=== PATIENT | female | born 1995 | race Two or more races ===

== ENCOUNTER 2022-05-07 09:12 | Emergency (ER) | payer MEDICAID, SELFPAY ==
--- NOTE | ~2022-05-07 | CT_ITS ---
EXAMINATION: CT HEAD WITHOUT CONTRAST CLINICAL INFORMATION: New headache, rule out intracranial abnormality. COMPARISON: None TECHNIQUE: Contiguous axial imaging was performed from the skull base to vertex without intravenous administration of contrast. Coronal and sagittal reformatted images were obtained. This CT examination was performed using dose optimization techniques as appropriate, variously including the following: *Automated exposure control *Adjustment of mA and/or kV according to patient size (this includes techniques or standardized protocols for targeted exams where dose is matched to indication/reason for exam; i.e. extremities or head) *Use of iterative reconstruction technique DLP: 583 mGy-cm FINDINGS: The cortical sulci are normal. The lateral ventricles are symmetrical. The third and fourth ventricles are in their normal midline position. The basilar and prepontine cisterns are unremarkable. There is no acute intra or extracerebral abnormality. There is no mass effect or midline shift. Sections through the bony calvarium are unremarkable. The paranasal sinuses are clear. The bony orbits and orbital contents are unremarkable. CT/CT head/brain wo IV con IMPRESSION: No acute intracranial pathology.
[2022-05-07 09:14] VITALS: BP 138/63; PULSE 69; RESP 18; TEMP 36.6; O2SAT 98; BMI 27.4
--- NOTE | 2022-05-07 09:23 | ED_ITS ---
HPI - General Adult General Chief complaint: Headache Stated complaint: Nausea Time Seen by Provider: 05/07/22 09:23 Source: patient Mode of arrival: ambulatory Limitations: language barrier History of Present Illness HPI narrative: 27 yo Sammarinese speaking female presents to the ED with complaints of headache, nausea, sore throat and dizziness which worsens when she turns her head to the right. She states it woke her from her sleep on Sunday feeling dizzy. She endorses nausea and diarrhea and states that she feels like she has numbness and tingling in her fingers. She states dizziness has not subsided or worsened since Sunday, however; her headache began to worsen last night with sensitivity to light and she took Tylenol and Ibuprofen without relief, prompting her to come to the ED today. She states her headache is in her forehead and temples and does not radiate. She denies any trauma, recent illness, sick contacts, vision changes, vomiting, changes in diet, or changed in gait. Onset (ago): day(s) Location: head Radiation: non-radiation Severity: moderate Severity scale (1-10): 5 Quality: aching Pain Consistency: constant Relieving factors: none Exacerbating factors: movement Associated symptoms: headaches and nausea/vomiting Treatments prior to arrival: NSAID Related Data Allergies Allergy/AdvReac Type Severity Reaction Status Date / Time No Known Allergies Allergy Verified 05/07/22 09:14 Review of Systems Review of Systems: Yes all other systems are reviewed and are negative Constitutional: Constitutional: Reports no additional constitutional complaints, Denies chills, Denies fever(s), Reports headache(s), Denies night s weats and Denies poor appetite Eyes: Eyes: Reports no additional eye complaints, Denies change in vision and Reports photophobia ENT: Reports system reviewed and no additional complaints, except as documented, Reports Normal hearing present, Denies dysphagia, Reports vertigo, Reports dizziness, Reports headache(s), Denies sinus pain, Denies sinus pressure and Reports sore throat Cardiovascular: Cardiovascular: Reports no additional cardiovascular complaints, Denies chest pain, Denies Epigastric Pain and Denies dyspnea Respiratory: Respiratory: Reports no additional respiratory complaints and Denies dyspnea Gastrointestinal: Gastrointestinal: Reports no additional gastrointestinal complaints, Denies abdominal pain, Denies constipation, Denies dysphagia, Reports diarrhea, Reports nausea and Denies vomiting Genitourinary: Genitourinary: Reports no additional female genitourinary complaints, Denies abnormal menses and Denies hematuria Musculoskeletal: Musculoskeletal: Reports no additional musculoskeletal complaints Integumentary/Breasts: Skin/Breast: Reports system reviewed and no additional complaints, except as docu Neurologic: Reports system reviewed and no additional complaints, except as documented, Reports Normal hearing present, Reports vertigo, Reports dizziness and Reports headache(s) Psychiatric: Psychiatric: Reports no additional psychiatric complaints PMFSH Past Medical History Attestation statement: The following information was validated with the patient. Source: old records reviewed Social History Social History Advance Directives: No Advance Directives Information Provided: No Physical Exam ED Vital Signs: Vital Signs - 24 hr 05/07/22 09:14 05/07/22 12:11 Temperature 97.8 F 98.1 F Pulse Rate 69 67 Respiratory Rate 18 18 Blood Pressure 138/63 Pulse Oximetry 98 99 Oxygen Delivery Method Room Air Room Air BMI result Body Mass Index 27.4 Const General: cooperative, alert and awake Nutritional Appearance: well nourished Orientation/consciousness: patient oriented x3 Limitations: language barrier HENMT Head: Yes normal to inspection, Yes normocephalic and Yes atraumatic Ears: hearing grossly normal bilaterally, external ears normal, TM normal on the left and unable to visualize TM (Large volume of cerumen present) on the left General nose exam: Normal external nose present and Normal nares present Face and sinus: Yes normal facial exam and Yes face symmetric Mouth: Normal oral and palatal mucosa present and tongue normal Teeth and gingiva: dentition normal Eyes General: appearance normal, both eyes and all related structures Visual Espinosa: normal visual espinosa by confrontation Alignment and Position: alignment normal Periorbital: periorbital findings normal Eyelids: Yes eyelids normal Conjunctivae: conjunctivae normal Sclerae: sclerae normal Corneas: corneas normal Pupils: Equal, round and reactive pupils present EOM: EOMs intact bilaterally Direct Ophthalmoscopy: normal light reflex, no photophobia and photophobia Neck Neck: Yes normal visual inspection, Yes full ROM and Yes no meningeal signs Chest Chest palpation & inspection: normal inspection of the chest Resp Effort & Inspection: normal respiratory effort, able to speak in complete sentences, no cough and not labored Auscultation: clear to auscultation bilaterally Cardio Rate: regular rate Rhythm: regular rhythm GI Inspection: Yes normal to inspection Palpation (GI): Soft to palpation and nontender Auscultation: normal bowel sounds General: Yes no CVA tenderness Back/Spine/Pelvis Back: no CVA tenderness Cervical Spine: normal cervical lordosis Thoracic/Lumbar Spine: thoracic and lumbar spine normal to inspection Skin General skin exam: no rashes or lesions noted Neuro General: patient oriented x3 and no meningeal signs Cranial nerves: Yes Equal, round and reactive pupils present, Yes Bilaterally intact EOM present, Yes Normal hearing present, Yes Ability to bilaterally rotate head present and Yes Ability to bilaterally elevate shoulders present Cognition (Neuro): normal cognition Gait exam (Neuro): Normal gait present Motor exam (neuro): 5/5 motor strength present throughout Sensory Exam: Normal double simultaneous stimulation for sensation Extrem General: Yes normal to inspection, Yes full ROM and Yes capillary refill normal Psych Appearance: grossly normal Mental Status: mental status grossly normal Speech and movement: Normal speech and movement present Affect: normal affect Attitude: cooperative Thought process: Normal thought process present Thought content: Normal thought content present Insight: Good insight present (Psych) Judgement: Good judgement present (Psych) Medications Administered Discontinued Medications Generic Name Dose Route Start Last Admin Trade Name Freq PRN Reason Stop Dose Admin Acetaminophen 650 mg 05/07/22 09:43 05/07/22 10:16 Acetaminophen 325 Mg Tablet PO 05/07/22 09:44 650 mg ONCE ONE Administration Diphenhydramine HCl 50 mg 05/07/22 09:50 05/07/22 10:15 Diphenhydramine Hcl 25 Mg Capsule PO 05/07/22 09:51 50 mg ONCE ONE Administration Docusate Sodium 100 mg 05/07/22 11:31 05/07/22 11:38 Docusate Sodium 100 Mg/10 Ml Liquid PO 05/07/22 11:32 100 mg ONCE ONE Administration Metoclopramide HCl 5 mg 05/07/22 09:50 05/07/22 12:11 Metoclopramide Hcl 5 Mg Tablet PO 05/07/22 09:51 5 mg ONCE ONE Administration Procedures Ear Wax Removal Right Ear: Cerumenolytic Used: Colace Results: Re-examined: some cerumen remains TM Examination: TM(s) intact, normal appearance Ear Canal Exam: atraumatic Patient Tolerated Procedure: well Complications: no problems Technique: ear canal irrigated Additional Comments: Right ear irrigated with warm water and hydrogen peroxide. Large hard brown cerumen flushed out. Large volume of cerumen remains on exam. Colace 1 mg instilled in ear. 10 minutes later, right ear flushed with several pieces yellow cerumen flushed out. Pt tolerated well Medical Decision Making MDM Narrative Medical decision making narrative: 27 yo Sammarinese speaking female presenting to the ED with a 4+ day course of dizziness and headache with associated nausea, and new sore throat. Pt medicated for nausea with good effect. Blood work unremarkable. Urine negative for UTI or . Covid negative. CT head negative for intracranial pathology. Right ear irrigated x 2 with hydrogen peroxide and Colace instilled. Large volume of cerumen removed. No erythema noted. TM intact. Educated to use Carbamide peroxide 5-10 ear drops per ear to soften wax and to return to the ED if she were to have worsening dizziness, changes in vision, nausea or vomiting that does not subside, or persistent diarrhea. Recommended to follow-up with a primary care provider. PCP groups included in discharge paperwork due to patient not having an established PCP. Cleared for discharge. Lab Data Lab results reviewed: Yes I reviewed the patient's lab results. Result diagrams: 05/07/22 10:22 05/07/22 10:21 Labs: Lab Results 05/07/22 05/07/22 05/07/22 Range/Units 10:19 10:19 10:20 WBC (4.8-10.8) X10*3/uL RBC (4.20-5.50) X10*6/uL Hgb (12.0-16.0) g/dl Hct (37.0-47.0) % MCV (80.0-98.0) fL MCH (27.0-33.0) pg MCHC (31.0-35.0) g/dl RDW (11.0-16.0) % Plt Count (160-400) X10*3/uL MPV (9.4-12.3) fL Immature Gran % (Auto) (0.0-0.4) % Neut % (Auto) (45-73) % Lymph % (Auto) (20-40) % [place] % (Auto) (2-11) % Eos % (Auto) (0-4) % Baso % (Auto) (0-2) % Lymph # (Auto) (1.2-4.9) X10*3/uL [place] # (Auto) (0.1-1.2) X10*3/uL Eos # (Auto) (0.0-0.4) X10*3/uL Baso # (Auto) (0.0-0.2) X10*3/uL Abs Immat Gran (auto) (0.00-0.03) X10*3/uL Absolute Neuts (auto) (2.0-8.3) x10*3/uL Absolute Nucleated RBC (0.0-0.012) X10*3/uL Nucleated RBC % (auto) (0.0-0.2) /100WBC Sodium (135-145) mmol/L Potassium (3.3-5.1) mmol/L Chloride (96-108) mmol/L Carbon Dioxide (22-29) mmol/L Anion Gap (12-20) BUN (9-16) mg/dL Creatinine (0.5-1.4) mg/dL Estim Creat Clear Calc Estimated GFR Random Glucose (60-115) mg/dL Calcium (8.4-10.2) mg/dL Urine Color Yellow Urine Appearance Clear Urine pH 5.5 (5.0-9.0) Ur Specific [place] 1.015 (1.005-1.025) Urine Protein Negative (Neg-Trace) mg/dL Urine Glucose (UA) Negative (Negative) mg/dL Urine Ketones Negative (Negative) mg/dL Urine Blood Negative (Negative) Urine Nitrite Negative (Negative) Ur Leukocyte Esterase Negative (Negative) Urine RBC 0-2 (0-2) /HPF Urine WBC 0-5 (0-5) /HPF Ur Squamous Epith Cells 0-2 (0-2) /HPF Urine Bacteria None Seen (None Seen) Hyaline Casts 0-2 (0-2) /LPF Urine Test NEGATIVE (NEGATIVE) COVID-19 (CLAY) Negative (Negative) COVID-19 Clin Com See Note 05/07/22 05/07/22 Range/Units 10:21 10:22 WBC 6.4 (4.8-10.8) X10*3/uL RBC 4.82 (4.20-5.50) X10*6/uL Hgb 13.9 (12.0-16.0) g/dl Hct 41.8 (37.0-47.0) % MCV 86.7 (80.0-98.0) fL MCH 28.8 (27.0-33.0) pg MCHC 33.3 (31.0-35.0) g/dl RDW 12.2 (11.0-16.0) % Plt Count 271 (160-400) X10*3/uL MPV 10.4 (9.4-12.3) fL Immature Gran % (Auto) 0.3 (0.0-0.4) % Neut % (Auto) 56.4 (45-73) % Lymph % (Auto) 33.9 (20-40) % [place] % (Auto) 6.0 (2-11) % Eos % (Auto) 2.5 (0-4) % Baso % (Auto) 0.9 (0-2) % Lymph # (Auto) 2.2 (1.2-4.9) X10*3/uL [place] # (Auto) 0.4 (0.1-1.2) X10*3/uL Eos # (Auto) 0.2 (0.0-0.4) X10*3/uL Baso # (Auto) 0.1 (0.0-0.2) X10*3/uL Abs Immat Gran (auto) 0.02 (0.00-0.03) X10*3/uL Absolute Neuts (auto) 3.6 (2.0-8.3) x10*3/uL Absolute Nucleated RBC 0.000 (0.0-0.012) X10*3/uL Nucleated RBC % (auto) 0.0 (0.0-0.2) /100WBC Sodium 142 (135-145) mmol/L Potassium 4.5 (3.3-5.1) mmol/L Chloride 110 H (96-108) mmol/L Carbon Dioxide 22 (22-29) mmol/L Anion Gap 15 (12-20) BUN 11 (9-16) mg/dL Creatinine 0.72 (0.5-1.4) mg/dL Estim Creat Clear Calc 96.7 Estimated GFR > 60 Random Glucose 87 (60-115) mg/dL Calcium 9.8 (8.4-10.2) mg/dL Urine Color Urine Appearance Urine pH (5.0-9.0) Ur Specific [place] (1.005-1.025) Urine Protein (Neg-Trace) mg/dL Urine Glucose (UA) (Negative) mg/dL Urine Ketones (Negative) mg/dL Urine Blood (Negative) Urine Nitrite (Negative) Ur Leukocyte Esterase (Negative) Urine RBC (0-2) /HPF Urine WBC (0-5) /HPF Ur Squamous Epith Cells (0-2) /HPF Urine Bacteria (None Seen) Hyaline Casts (0-2) /LPF Urine Test (NEGATIVE) COVID-19 (CLAY) (Negative) COVID-19 Clin Com Imaging Data CT scan - head: Attestation: I personally reviewed and interpreted this imaging study as follows: My impression: No acute intracranial pathology noted Radiologist's impression: EXAMINATION: CT HEAD WITHOUT CONTRAST CLINICAL INFORMATION: New headache, rule out intracranial abnormality.? COMPARISON: None TECHNIQUE: Contiguous axial imaging was performed from the skull base to vertex without intravenous administration of contrast. Coronal and sagittal reformatted images were obtained. This CT examination was performed using dose optimization techniques as appropriate, variously including the following: *Automated exposure control *Adjustment of mA and/or kV according to patient size (this includes techniques or standardized protocols for targeted exams where dose is matched to indication/reason for exam; i.e. extremities or head) *Use of iterative reconstruction technique DLP: 583 mGy-cm FINDINGS: The cortical sulci are normal. The lateral ventricles are symmetrical. The third and fourth ventricles are in their normal midline position. The basilar and prepontine cisterns are unremarkable. There is no acute intra or extracerebral abnormality. There is no mass effect or midline shift. Sections through the bony calvarium are unremarkable. The paranasal sinuses are clear. The bony orbits and orbital contents are unremarkable. CT/CT head/brain wo IV con IMPRESSION: No acute intracranial pathology. Dictated By: Eric Monterroso MD Signed By: <Electronically signed by Eric Monterroso MD in OV> 05/07/22 1124 DD/ 1101 TD/TT:? Photograph Finisher: GR Discharge Plan Discharge Clinical Impression: Cerumen impaction, Dizziness Patient Disposition: Home, Self-Care Instructions: Carbamide Peroxide (Into the ear), Vertigo (ED), Dizziness (ED) Referrals: [facility] [Provider Group] [facility] Primary CareLuis Fernando [Provider Group] [facility] Primary CareMelissa [Provider Group] Interventions: ED Discharge Assessment Last Done: 05/07/22 13:01 Discharge Date/Time: 05/07/22 13:02 Print Language: Sammarinese
[2022-05-07] MEDS: diphenhydrAMINE HCL 25 MG CAPSULE 50 MG PO (10:15)
[2022-05-07] MEDS: Acetaminophen 325 MG TABLET 650 MG PO (10:16)
[2022-05-07 10:26] LABS: MANUAL DIFF FLAG NO
[2022-05-07 10:29] LABS: Basophils Absolute Auto 0.1 X10*3/uL (0.0-0.2); Basophils Percent Auto 0.9 % (0-2); Eosinophils Absolute Auto 0.2 X10*3/uL (0.0-0.4); Eosinophils Percent Auto 2.5 % (0-4); Hematocrit 41.8 % (37.0-47.0); Hemoglobin 13.9 g/dl (12.0-16.0); Imm Gran Abs Auto 0.02 X10*3/uL (0.00-0.03); Imm Gran Pct Auto 0.3 % (0.0-0.4); Lymphocytes Absolute Auto 2.2 X10*3/uL (1.2-4.9); Lymphocytes Percent Auto 33.9 % (20-40); Mean Corpuscular HGB Conc 33.3 g/dl (31.0-35.0); Mean Corpuscular Hemoglobin 28.8 pg (27.0-33.0); Mean Corpuscular Volume 86.7 fL (80.0-98.0); Mean Platelet Volume 10.4 fL (9.4-12.3); Monocytes Absolute Auto 0.4 X10*3/uL (0.1-1.2); Neutrophils Absolute Auto 3.6 x10*3/uL (2.0-8.3); Neutrophils Percent Auto 56.4 % (45-73); Platelet Count 271 X10*3/uL (160-400); Red Blood Count 4.82 X10*6/uL (4.20-5.50); Red Cell Distribution Width 12.2 % (11.0-16.0); White Blood Count 6.4 X10*3/uL (4.8-10.8)
[2022-05-07 10:30] LABS: Appearance Urine Clear; Color Urine Yellow; Glucose Urine UA Negative (Negative); Leukocyte Esterase Urine Negative (Negative); Nitrite Urine Negative (Negative); PH 5.5 (5.0-9.0); Specific Gravity - Urine 1.015 (1.005-1.025); Urine Blood Negative (Negative); Urine Ketones Negative (Negative); Urine Protein Negative (Neg-Trace)
[2022-05-07 10:32] LABS: Bacteria Urine None Seen (None Seen); Hyaline Casts Urine 0-2 /LPF (0-2); RBC Urine 0-2 /HPF (0-2); Squamous Epithelial Cell Urine 0-2 /HPF (0-2); WBC Urine 0-5 /HPF (0-5)
[2022-05-07 10:34] LABS: UPreg QC Valid YES; Urine Pregnancy NEGATIVE (NEGATIVE)
[2022-05-07 10:42] LABS: Anion Gap 15 (12-20); Blood Urea Nitrogen 11 mg/dL (9-16); Calcium 9.8 mg/dL (8.4-10.2); Carbon Dioxide 22 mmol/L (22-29); Chloride 110 mmol/L (96-108); Creatinine Clr Calc Pharmacy 96.7; Estimated Glomerular Filt Rate > 60; Glucose Random 87 mg/dL (60-115); Potassium 4.5 mmol/L (3.3-5.1); Sodium 142 mmol/L (135-145)
[2022-05-07 10:52] LABS: COVID-19 Test Negative (Negative); IDNOW Serial# 55D5AD1C
--- NOTE | 2022-05-07 11:26 | PC.NURSE ---
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
[2022-05-07] MEDS: Docusate Sodium 100 MG/10 ML LIQUID PO (11:38)
--- NOTE | 2022-05-07 11:46 | PC.NURSE ---
SPOKE TO [facility] RELATED TO DELAY OF REGLAN ORDER. PENDING DELIVERY
[2022-05-07 12:11] VITALS: PULSE 67; RESP 18; TEMP 36.7; O2SAT 99
[2022-05-07] MEDS: Metoclopramide HCl 5 MG TABLET PO (12:11)
== END 2022-05-07 13:02 | disposition home or self-care (01) ==
PROVIDERS: Nurse Practitioner Family; Emergency Provider Emergency Medicine Emergency Medical Services
DX: H61.21 Impacted cerumen, right ear (principal); R42 Dizziness and giddiness; R51.9 Headache, unspecified; R11.2 Nausea with vomiting, unspecified; Z20.822 Contact with and (suspected) exposure to COVID-19; Z79.899 Other long term (current) drug therapy
CPT/HCPCS: 36415; 69209; 70450; 80048; 81001; 81025; 85025; 87635; 99284

== ENCOUNTER 2024-10-22 10:13 | Outpatient (REF) | payer MEDICAID, SELFPAY ==
[2024-10-22 10:57] LABS: MANUAL DIFF FLAG NO
[2024-10-22 11:11] LABS: Basophils Absolute Auto 0.1 X10*3/uL (0.0-0.2); Basophils Percent Auto 1.2 % (0-2); Eosinophils Absolute Auto 0.1 X10*3/uL (0.0-0.4); Eosinophils Percent Auto 2.2 % (0-4); Hematocrit 40.6 % (37.0-47.0); Hemoglobin 13.5 g/dl (12.0-16.0); Lymphocytes Absolute Auto 2.2 X10*3/uL (1.2-4.9); Lymphocytes Percent Auto 36.9 % (20-40); Mean Corpuscular HGB Conc 33.3 g/dl (31.0-35.0); Mean Corpuscular Hemoglobin 29.5 pg (27.0-33.0); Mean Corpuscular Volume 88.6 fL (80.0-98.0); Mean Platelet Volume 11.8 fL (9.4-12.3); Monocytes Absolute Auto 0.3 X10*3/uL (0.1-1.2); Monocytes Percent Auto 5.7 % (2-11); Neutrophils Absolute Auto 3.2 x10*3/uL (2.0-8.3); Platelet Count 249 X10*3/uL (160-400); Red Blood Count 4.58 X10*6/uL (4.20-5.50); Red Cell Distribution Width 12.3 % (11.0-16.0); White Blood Count 5.9 X10*3/uL (4.8-10.8)
[2024-10-22 11:17] LABS: Estimated Average Glucose 105 mg/dL; Hemoglobin A1C 121.8903 umol/L; Hemoglobin A1c % 5.3 % (<6.0); Total Hemoglobin (HGBA1C) 3526.4496 umol/L
--- OUTSIDE RECORDS SUMMARY | 2024-10-22 11:29 | XMS_ITS | Continuity of Care Document ---
Author Organization [facility] Address [address] [place] [address] [address] [place] [address] Phone Care Team Providers Care Human Resources Assistant Name Role Phone Herberth DENENY, CAMREN, Pramod CID Unavailable U navailable Procedures Procedure Date Office/Oupt E&M New Pt 30 Mins- CT & [place] [facility] CVR Reveal Thigh High Duplex Scan-extrem Veins; Comp- CT & [place] Advance Directives Directive Yes / No Effective Date File Name No Information Encounters Encounter Description Practice Location Reason(s) For Visit Diagnoses Date Provider Providers Copied on Encounter Office/Oupt E&M New Pt 30 Mins- CT & [place] [facility], [address] [place] [address] Dr [address], [id number], [place] tel:[phone] CVR - [place] - [place] Pain in right lower legPain in left lower legPain in right legPain in left legRestless legs syndromeVenous insufficiency (chronic) (peripheral)Pru ritus, unspecifiedCram p and spasmLocalized edema 4 Herberth DENNEY, CARMEN, JOSE ROBERTO Benavidez. [address] [facility], [address], [place], [id number] , [place]. tel:[phone] [facility], [address] [place] [address] [address], [id number], [place] tel:[phone] CVR - [place] - [place] Chronic venous hypertension (idiopathic) with other complications of bilateral lower extremity Herberth DENNEY, CARMEN, JOSE ROBERTO Benavidez. [address] [place] [address], Suite [facility], [place], [place], [id number] , . tel:[phone] Referring Provider: Pramod Kevin MD, CARMEN, JOSE ROBERTO, [address] [place] [address], [place], [address] . tel:[phone] Family History Family Member Type Diagnosis Age At Onset No Information Payers Payer name Insurance type Covered republican ID Authoriza tion(s) No Information Social History Type Description Quantity Date Captured Comments Alcohol Use Details Unknown Caffeine Use Details Unknown Tobacco Use Status No Information Smoking Status Former Smoker Non-Smoking Tobacco Use Details : No Details Available : No Details Available Sex Female Vital Signs Date / Time: Height Weight BMI Pulse Rate Blood Pressure Temperature Respiratory Rate Body Surface Area Head Circumference Head Circ. Percentile Wt./[place]. Percentile BMI percentile Pulse Ox Inhaled Ox 60.330 kg (133.00 lbs) 29.9 5 kg/m eter (2) 100/64 mm[Hg] Chief Complaint And Reason For Visit No Information Reason For Referral Reason For Referral No Information Plan Of Treatment Date Type Action Status Goal Diet education completed Goal Tobacco cessation counseling completed Referral Ordered: Weight management: Referral to physician timeframe: 3 Months (related to Body mass index (BMI) 29.0-29.9, adult) ordered Appointment Dottie Daniels (1 Year) BOOKED Appointment Dottie Daniels (1 Year ) BOOKED History Of Present Illness Encounter Date Complaint History Of Prese nt Illness No Information Functional Status Date Functional Assessmen t No Information Instructions Date Instruction Additional Infor mation Diet education Related to Body mass index (BMI) 29.0-29.9, adult Giving Encouragement to exercise Related to Body mass index (BMI) 29.0-29.9, adult Lifestyle education Related to B adrianne mass index (BMI) 29.0-29.9, adult Patient education booklet given Related to Pain in right lower leg Assessments Type Assessment Date No Information Patient Care Teams Name Effective Dates (start - stop) Status Members No Information
--- OUTSIDE RECORDS SUMMARY | 2024-10-22 11:29 | XMS_ITS | Encounter Summary ---
Author Organization [facility] Address [address] [place] [address] Care Team Providers Care Well Services Operator Name Role Phone Unavailable Primary Care Provider Unavailabl e Reason for Visit * Reason Comments Pre-visit Planning SDOH screening is ne gative Encounter Details Date Type Department Care Team (Late st Contact Info) Description 10/17/2024 Patient Outreach [facility] [address], [place] [phone] Rupinder Kramer DO [address] [place], [place] [phone] Pre-visit Planning (SDOH screening is negative) Social History Tobacco Use Types Packs/Day Years Used Date Smoking Tobacco: Never Passive Smoke Exposure: Never Smokeless Tobacco: Never Alcohol Use Standard Drinks/Week Comments Never 0 (1 standard drink = 0.6 oz pur e alcohol) Housing Stability Answer Date Recorded What is your housing situation today? I have [place] 10/17/[address] you li ve. Do you have problems with any of the following? None of the above 10/17/2024 Food Insecurity Answer Date Recorded Within the past 12 months, y ou worried that your food would run out before you got money to buy more: Never True 10/17/2024 Within the past 12 months,th e food you bought just didn't last and you didn't have enough money to get more: Never True 07/2024 Transportation Answer Date Recorded In the past 12 months, has l ack of transportation kept you from medical appts, meetings, work or from getting things needed for daily living? No 10/17/2024 Utilities Answer Date Recorded In the past 12 months, has t he electric, gas, oil or water company threatened to shut off services in your home? No 10/17/2024 Internet Access Answer Date Recorded Internet Access Q1 Yes 10/17/2024 Internet Access Q2 Not on file 10/17/2024 Comments Unknown Sex and Gender Information Value Date Recorded Sex Assigned at Female 08/11/2024 8:53 AM EST Legal Sex Female 10:20 AM EDT Gender Identity Female 08/11/2024 8:51 AM EST Sexual Orientation Straight 08/11/2024 8: 53 AM EST documented as of this encounter Progress Notes * Donavon Carlson - 10/17/2024 9:45 AM EDT CC Donavon Issa placed successful outbound call to patient for pre-visit planning. Patient name and confirmed. Patient confirms appt date and time, and has transportation arrangements. Biggest concern for appointment at this time is no concern at the moment. Appropriate screenings completed in anticipation of appointment. SDOH screening is negative. documented in this encounter Plan of Treatment Upcoming Encounters Date Type Department Care Team (Late st Contact Info) Description 11/03/2024 3:00 PM EDT Office Visit [facility] [address] [place] [address] Linda Bangura, DDS [address] [place] [address] 11/20/2024 9:30 AM EDT Office Visit [facility] [address] [place] [address] Ortega-TafoyaMiltonLinda, DDS [address] [place] [address] 03/02/2025 1:00 PM EDT Office Visit [facility] [address], [place] [phone] Arin Pham [address] [place], [place] [phone] documented as of this encounter Visit Diagnoses Not on filedocumented in this encounter
--- OUTSIDE RECORDS SUMMARY | 2024-10-22 11:30 | XMS_ITS | Encounter Summary ---
Author Organization [employer] Address [address] [facility] [address] [place] [address] Care Team Providers Care Fuse Maker Name Role Phone Rupinder Kramer DO Primary Care Provider Encounter Details Date Type Department Care Team (Late st Contact Info) Description 10/22/2024 9:00 AM EDT Office Visit [facility] MEDICINE [address], [place] [phone] Rupinder Kramer DO [address] [place], [place] [phone] Routine history and physical examination of adult (Primary Dx); Chronic allergic rhinitis; Bilateral leg pain; Impacted cerumen of left ear; Decreased visual acuity; Dry eyes; Tinnitus of both ears; Folliculitis; BMI 29.0-29.9,adult; Encounter for immunization Social History Tobacco Use Types Packs/Day Years Used Date Smoking Tobacco: Never Passive Smoke Exposure: Never Smokeless Tobacco: Never Alcohol Use Standard Drinks/Week Comments Never 0 (1 standard drink = 0.6 oz pur e alcohol) Depression Answer Date Recorded Patient Health Questionnaire-9 Score 3 10/22/2024 Patient Health Questionnaire-9 Score 3 10/22/2024 Last PHQ-9: Questionnaire Data Not on file 0 10/22/2024 Housing Stability Answer Date Recorded What is your housing situation today? I have [place] song 10/22/[address] you li ve. Do you have problems with any of the following? I am not sure 10/22/2024 Food Insecurity Answer Date Recorded Within the [...] off services in your home? No 10/17/2024 Depression Answer Date Recorded Patient Health Questionnaire-2 Score 1 10/22/2024 Internet Access Answer Date Recorded Internet Access Q1 Yes 10/17/2024 Internet Access Q2 Not on file 10/17/2024 Comments No Sex and Gender Information Value Date Recorded Sex Assigned at Female 08/11/2024 8:53 AM EST Legal Sex Female 10:20 AM EDT Gender Identity Female 08/11/2024 8:51 AM EST Sexual Orientation Straight 08/11/2024 8: 53 AM EST documented as of this encounter Last Filed Vital Signs Vital Sign Reading Time Taken Comments Blood Pressure 100/60 10/22/2024 8:58 AM EDT Pulse 65 10/22/2024 8:58 AM EDT Temperature 36.3 ??C (97.3 ??F) 10/22/2024 8:58 AM ED T Respiratory Rate 20 10/22/2024 8:58 AM EDT Oxygen Saturation - - Inhaled Oxygen Concentration - - Weight 67.6 kg (149 lb) 10/22/2024 8:58 AM EDT Height 152.4 cm (5') 10/22/2024 8:58 AM EDT Body Mass Index 29.1 10/22/2024 8:58 AM EDT documented in this encounter Plan of Treatment Upcoming Encounters Date Type Department Care Team (Late st Contact Info) Description 11/03/2024 3:00 PM EDT Office Visit [facility] ADULT DENTAL [address] [place] [address] Linda Bangura DDS [address] [place] [address] 11/20/2024 9:30 AM EDT Office Visit [facility] ADULT DENTAL [address] [place] [address] Linda Bangura DDS [address] [place] [address] 03/02/2025 1:00 PM EDT Office Visit [facility] [address] [place], [place] [phone] Arin Pham [address] [place], [place] [phone] Scheduled Orders Name Type Priority Associated Diagnoses Orde r Schedule T4, Free Lab Routine Routine history and physical examination of adult Chronic allergic rhinitis Bilateral leg pain Impacted cerumen of left ear Decreased visual acuity Dry eyes Tinnitus of both ears BMI 29.0-29.9,adult Expected: 10/22/2024 (Approximate), Expires: 10/22/2025 Lipid Panel, Standard Lab Routine Routine history and physical examination of adult Chronic allergic rhinitis Bilateral leg pain Impacted cerumen of left ear Decreased visual acuity Dry eyes Tinnitus of both ears BMI 29.0-29.9,adult Expected: 10/22/2024 (Approximate), Expires: 10/22/2025 TSH Lab Routine Routine history and physical examination of adult Chronic allergic rhinitis Bilateral leg pain Impacted cerumen of left ear Decreased visual acuity Dry eyes Tinnitus of both ears BMI 29.0-29.9,adult Expected: 10/22/2024 (Approximate), Expires: 10/22/2025 Vitamin D, 25-Hydroxy, Total, Immunoassay Lab Routine Routine history and physical examination of adult Chronic allergic rhinitis Bilateral leg pain Impacted cerumen of left ear Decreased visual acuity Dry eyes Tinnitus of both ears BMI 29.0-29.9,adult Expected: 10/22/2024 (Approximate), Expires: 10/22/2025 Hepatic Function Panel Lab Routine Routine history and physical examination of adult Chronic allergic rhinitis Bilateral leg pain Impacted cerumen of left ear Decreased visual acuity Dry eyes Tinnitus of both ears BMI 29.0-29.9,adult Expected: 10/22/2024 (Approximate), Expires: 10/22/2025 Basic Metabolic Panel Lab Routine Routine history and physical examination of adult Chronic allergic rhinitis Bilateral leg pain Impacted cerumen of left ear Decreased visual acuity Dry eyes Tinnitus of both ears BMI 29.0-29.9,adult Expected: 10/22/2024 (Approximate), Expires: 10/22/2025 Varicella zoster antibody, IgG Lab Routine Routine history and physical examination of adult Chronic allergic rhinitis Bilateral leg pain Impacted cerumen of left ear Decreased visual acuity Dry eyes Tinnitus of both ears BMI 29.0-29.9,adult Expected: 10/22/2024 (Approximate), Expires: 10/22/2025 Measles, Mumps, and Rubella (MMR) Antibodies??(IgG) Panel, Immune Status Lab Routine Routine history and physical examination of adult Chronic allergic rhinitis Bilateral leg pain Impacted cerumen of left ear Decreased visual acuity Dry eyes Tinnitus of both ears BMI 29.0-29.9,adult Expected: 10/22/2024 (Approximate), Expires: 10/22/2025 Hepatitis B surface antigen, EIA Lab Routine Routine history and physical examination of adult Chronic allergic rhinitis Bilateral leg pain Impacted cerumen of left ear Decreased visual acuity Dry eyes Tinnitus of both ears BMI 29.0-29.9,adult Expected: 10/22/2024 (Approximate), Expires: 10/22/2025 Chlamydia/N. Gonorrhoeae RNA, TMA, Urogenitial Microbiology Routine Routine history and physical examination of adult Chronic allergic rhinitis Bilateral leg pain Impacted cerumen of left ear Decreased visual acuity Dry eyes Tinnitus of both ears BMI 29.0-29.9,adult Ordered: 10/22/2024 HIV-1/2 Antigen and Antibodies, Fourth Generation, with Reflexes Lab Routine Routine history and physical examination of adult Chronic allergic rhinitis Bilateral leg pain Impacted cerumen of left ear Decreased visual acuity Dry eyes Tinnitus of both ears BMI 29.0-29.9,adult Expected: 10/22/2024 (Approximate), Expires: 10/22/2025 Hepatitis C Antibody with Reflex to HCV, RNA, Quantitative, Real-Time PCR Lab Routine Routine history and physical examination of adult Chronic allergic rhinitis Bilateral leg pain Impacted cerumen of left ear Decreased visual acuity Dry eyes Tinnitus of both ears BMI 29.0-29.9,adult Expected: 10/22/2024, Expires: 10/22/2025 RPR (Monitor) with Reflex to??Titer Lab Routine Routine history and physical examination of adult Chronic allergic rhinitis Bilateral leg pain Impacted cerumen of left ear Decreased visual acuity Dry eyes Tinnitus of both ears BMI 29.0-29.9,adult Expected: 10/22/2024, Expires: 10/22/2025 Hepatitis B Surface Antibody, Qualitative Lab Routine Routine history and physical examination of adult Chronic allergic rhinitis Bilateral leg pain Impacted cerumen of left ear Decreased visual acuity Dry eyes Tinnitus of both ears BMI 29.0-29.9,adult Expected: 10/22/2024 (Approximate), Expires: 10/22/2025 SIDNEY Screen,IFA, with Reflex to Titer and Pattern Lab Routine Routine history and physical examination of adult Chronic allergic rhinitis Bilateral leg pain Impacted cerumen of left ear Decreased visual acuity Dry eyes Tinnitus of both ears BMI 29.0-29.9,adult Expected: 10/22/2024 (Approximate), Expires: 10/22/2025 Lyme Disease Ab with Reflex to Blot (IgG, IgM) Lab Routine Routine history and physical examination of adult Chronic allergic rhinitis Bilateral leg pain Impacted cerumen of left ear Decreased visual acuity Dry eyes Tinnitus of both ears BMI 29.0-29.9,adult Expected: 10/22/2024, Expires: 10/22/2025 Rheumatoid Factor Lab Routine Routine history and physical examination of adult Chronic allergic rhinitis Bilateral leg pain Impacted cerumen of left ear Decreased visual acuity Dry eyes Tinnitus of both ears BMI 29.0-29.9,adult Expected: 10/22/2024, Expires: 10/22/2025 Sed Rate by Modified [place] Lab Routine Routine history and physical examination of adult Chronic allergic rhinitis Bilateral leg pain Impacted cerumen of left ear Decreased visual acuity Dry eyes Tinnitus of both ears BMI 29.0-29.9,adult Expected: 10/22/2024, Expires: 10/22/2025 C-reactive Protein Lab Routine Routine history and physical examination of adult Chronic allergic rhinitis Bilateral leg pain Impacted cerumen of left ear Decreased visual acuity Dry eyes Tinnitus of both ears BMI 29.0-29.9,adult Expected: 10/22/2024 (Approximate), Expires: 10/22/2025 Hepatitis A Antibody, Total Lab Routine Routine history and physical examination of adult Chronic allergic rhinitis Bilateral leg pain Impacted cerumen of left ear Decreased visual acuity Dry eyes Tinnitus of both ears BMI 29.0-29.9,adult Expected: 10/22/2024 (Approximate), Expires: 10/22/2025 Hepatitis B Core Antibody, Total Lab Routine Routine history and physical examination of adult Chronic allergic rhinitis Bilateral leg pain Impacted cerumen of left ear Decreased visual acuity Dry eyes Tinnitus of both ears BMI 29.0-29.9,adult Expected: 10/22/2024 (Approximate), Expires: 10/22/2025 T-SPOT??.TB Lab Routine Routine history and physical examination of adult Chronic allergic rhinitis Bilateral leg pain Impacted cerumen of left ear Decreased visual acuity Dry eyes Tinnitus of both ears BMI 29.0-29.9,adult Expected: 10/22/2024 (Approximate), Expires: 10/22/2025 Vitamin B12 (Cobalamin) and Folate Panel, Serum Lab Routine Routine history and physical examination of adult Chronic allergic rhinitis Bilateral leg pain Impacted cerumen of left ear Decreased visual acuity Dry eyes Tinnitus of both ears BMI 29.0-29.9,adult Expected: 10/22/2024, Expires: 10/22/2025 Ferritin Lab Routine Routine history and physical examination of adult Chronic allergic rhinitis Bilateral leg pain Impacted cerumen of left ear Decreased visual acuity Dry eyes Tinnitus of both ears BMI 29.0-29.9,adult Expected: 10/22/2024, Expires: 10/22/2025 Iron And Total Iron Binding Capacity Lab Routine Routine history and physical examination of adult Chronic allergic rhinitis Bilateral leg pain Impacted cerumen of left ear Decreased visual acuity Dry eyes Tinnitus of both ears BMI 29.0-29.9,adult Expected: 10/22/2024, Expires: 10/22/2025 documented as of this encounter Procedures Procedure Name Priority Date/Time Associated Diagnosis Comments CBC WITH AUTO DIFFERENTIAL Routine 10/22/2024 10:19 AM EDT Routine history and physical examination of adult Chronic allergic rhinitis Bilateral leg pain Impacted cerumen of left ear Decreased visual acuity Dry eyes Tinnitus of both ears BMI 29.0-29.9,adult HEMOGLOBIN A1C Routine 10/22/2024 10:19 AM EDT Routine history and physical examination of adult Chronic allergic rhinitis Bilateral leg pain Impacted cerumen of left ear Decreased visual acuity Dry eyes Tinnitus of both ears BMI 29.0-29.9,adult documented in this encounter Results * CBC auto differential (10/22/2024 10:19 AM EDT) White Blood Count 5.9 4.8 - 10.8 X10*3/uL [facility] Red Blood Count 4.58 4.20 - 5.50 X10*6/uL [facility] Hemoglobin 13.5 12.0 - 16.0 g/dl [facility] Hematocrit 40.6 37.0 - 47.0 % [facility] Mean Corpuscular Volume 88.6 80.0 - 98.0 fL [facility] Mean Corpuscular Hemoglobin 29.5 27.0 - 33.0 pg [facility] Mean Corpuscular HGB Conc 33.3 31.0 - 35.0 g/dl [facility] Red Cell Distribution Width 12.3 11.0 - 16.0 % [facility] Platelet Count 249 160 - 400 X10*3/uL [facility] Mean Platelet Volume 11.8 9.4 - 12.3 fL [facility] Neutrophils Percent Auto 54.0 45 - 73 % [facility] Imm Gran Pct Auto 0.0 0.0 - 0.4 % [facility] Lymphocytes Percent Auto 36.9 20 - 40 % [facility] Monocytes Percent Auto 5.7 2 - 11 % [facility] Eosinophils Percent Auto 2.2 0 - 4 % [facility] Basophils Percent Auto 1.2 0 - 2 % [facility] NRBC Pct Auto 0.0 0.0 - 0.2 /100WBC [facility] Neutrophils Absolute Auto 3.2 2.0 - 8.3 x10*3/uL [facility] Imm Gran Abs Auto 0.00 0.00 - 0.03 X10*3/uL [facility] Lymphocytes Absolute Auto 2.2 1.2 - 4.9 X10*3/uL [facility] Monocytes Absolute Auto 0.3 0.1 - 1.2 X10*3/uL [facility] Eosinophils Absolute Auto 0.1 0.0 - 0.4 X10*3/uL [facility] Basophils Absolute Auto 0.1 0.0 - 0.2 X10*3/uL [facility] NRBC Abs Auto 0.000 0.0 - 0.012 X10*3/uL [facility] Blood Venous blood specimen / Unknown 10/22/2024 10:19 AM EDT 10/22/2024 10:55 AM EDT Rupinder Hallmanjanetsebastian DO LAB BLOOD ORDERABLES Final R esult Performing Organization Address City/[facility]/ZIP Co de Phone Number [facility] [address] [place] [address] [phone] * Hemoglobin A1c (10/22/2024 10:19 AM EDT) Hemoglobin A1c 5.3 <6.0 % [facility] Comment:Hemoglobin A1C Refer ence Range Adults: 4.8 - 6.0 % Non diabetic: < 6.0 % Goal: < 7.0 %Additional Action Suggested: > 8.0 %Note: Hemoglobin A1c results are invalid for patients with abnormal amounts of HbF. Blood transfusions may impact the HbA1c concentration in the patient sample. Estimated Average Glucose 105 mg/dL [facility] Comment:eAG = Estimated ave rage glucose which is %A1C expressed asaverage glucose, using the formula of the [id number] Glucose study (ADAG), Diabetes Care, Vol.31,#8,Jan. 2007 Blood Venous blood specimen / Unknown 10/22/2024 10:19 AM EDT 10/22/2024 10:55 AM EDT Rupinder Williams DO LAB BLOOD ORDERABLES Final R esult Performing Organization Address City/[facility]/ZIP Co de Phone Number [facility] [address] [place] [phone] documented in this encounter Visit Diagnoses Diagnosis Routine history and physical examination of adult- Primary Chronic allergic rhinitis Bilateral leg pain Pain in soft tissues of limb Impacted cerumen of left ear Impacted cerumen Decreased visual acuity Dry eyes Unspecified tear film insufficiency Tinnitus of both ears Unspecified tinnitus Folliculitis Other specified disease of hair and hair follicles BMI 29.0-29.9,adult Encounter for immunization documented in this encounter Additional Health Concerns Assessment Noted Time PHQ-9 Depression Total Score: 3 10/23/19 25 10:26 AM EDT documented as of this encounter Care Teams Fuse Maker Relationship Specialty Start Date End Date Rupinder Kramer DO [address] [place] [address] PCP - General Family Medicine 10/22/24 documented as of this encounter
--- OUTSIDE RECORDS SUMMARY | 2024-10-22 11:30 | XMS_ITS | Encounter Summary ---
Author Organization [employer] [facility] Address [address] [facility] [address] [place] [address] Care Team Providers Care Boiler Maker Name Role Phone Unavailable Primary Care Provider Unavailabl e Reason for Visit * Reason Comments [place] post and core Tooth # 19 crown pre p Encounter Details Date Type Department Care Team (Late st Contact Info) Description 10/20/2024 1:30 PM EDT Office Visit [facility] ADULT DENTAL [address] [place] [address] Linda Bangura, JONATHANS [address] [place] [address] Full coverage crown needed for root canal-treated tooth (Primary Dx); Full coverage crown needed for tooth at risk for fracture Social History Tobacco Use Types Packs/Day Years [...] Sign Reading Time Taken Comments Blood Pressure 116/80 10/20/2024 1:45 PM EDT Pulse 93 10/20/2024 1:45 PM EDT Temperature - - Respiratory Rate - - Oxygen Saturation - - Inhaled Oxygen Concentration - - Weight - - Height - - Body Mass Index - - documented in this encounter Progress Notes * Linda Bangura DDS - 10/20/2024 1:30 PM EDT Patient ID: Rupinder Douglass is a 29 y.o. female. Time Out: Timeout Date: 10/20/24, Timeout Time: 1344 (post core and crown prep # 19) Location: [facility] Tooth: #19 Procedure: [place] and Post & Core Verified the above with patient, janitorial assistant, and provider. Confirmed via patient's chart, intraorally and by radiographs. Paving Contractor: not applicable Chief Complaint Patient presents with [place] post and core Tooth # 19 crown prep Medical Hx: Vitals: Blood pressure 116/80, pulse 93. Medications, Med Hx reviewed with patient and updated in chart. Consent Obtained: The risks, benefits, indications, potential complications, and alternatives were explained to the patient and informed consent was obtained with good understanding. Treatment Provided: Dental procedures in this visit [id number] - PREFABRICATED POST AND CORE IN ADDITION TO CROWN 19 (Completed) Service provider: Linda Bangura DDS Billing provider: Linda Bangura DDS D2700.1 - CROWN PREP (Completed) Service provider: Linda Bangura DDS Billing provider: Linda Bangura DDS [id number] - INTRAORAL - PERIAPICAL FIRST RADIOGRAPHIC IMAGE (Completed) Service provider: Linda Bangura DDS Billing provider: Linda Bangura DDS [id number] - CASE PRESENTATION, DETAILED AND EXTENSIVE TREATMENT PLANNING (Completed) Service provider: Linda Bangura DDS Billing provider: Linda Bangura DDS Topical: 20% Benzocaine Anesthesia: 2% Lidocaine (Xylocaine) w/ 1:100,000 epinephrine Number of Cartridges: 1 Injection Type: Buccal infiltration, Long buccal nerve block, and LI nerve infiltration Confirmed profound anesthesia. Isolation: high speed suction and cotton rolls Post and core Build-up: Temporary mu-ism removed. Canal length: 18.5 mm Praveen-percha removed using [place] Post space made: 14 mm Peeso reamer used size: 0-yellow Post type used: Flexipost Post size used: 0-yellow PA taken to confirm post size and length. Irrigation: 17% EDTA Post space dried using paper points. Etch: 37% Phosphoric Acid Etch Romeo: I-Romeo Post cemented with: Relyx Unicem Core: Filtek [place] Flowable Composite PA taken to confirm fit. Occlusion checked with articulating paper and adjustments made as needed. Core smoothed and polished. [place] preparation: Prepared tooth for: Ceramic crown Gingival Retraction: Traxodent and Retraction cap Final Impression taken with: Paradigm Heavy & Light Body Bite Registration taken with: BluPrint VPS and Triple tray Provisional fabricated with: Paradigm Temp Material and cemented with: TempBond Shade: A3 Lab used: [facility] Lab Due Date: 10/31/2024 POI given to patient with instructions for homecare, to avoid sticky or crunchy foods, and to call if temp crown becomes dislodged. All questions answered. Patient tolerated procedure well, and was discharged alert, oriented, and in stable condition. NV: [place] Video Editing Internship: Kameron Liu Dentist: Linda Bangura DDS documented in this encounter Plan of Treatment Upcoming Encounters Date Type Department Care Team (Late st Contact Info) Description 11/03/2024 3:00 PM EDT Office Visit [facility] [address] [facility] [place] [address] Ortega-Linda Tafoya, DDS [address], [place] [phone] 11/20/2024 9:30 AM EDT Office Visit [facility] ADULT DENTAL [address] [place] [address] Ortega-TafoyaJackLinda, DDS [address], [place] [phone] 03/02/2025 1:00 PM EDT Office Visit [facility] [address] [place], [place] [phone] Arin Pham [address] [place], [place] [phone] Scheduled Orders Name Type Priority Associated Diagnoses Orde r Schedule DENTAL LAB FIXED Dental Routine Ordered: 10/20/2024 documented as of this encounter Procedures Procedure Name Priority Date/Time Associated Diagnosis Comments CROWN PREP Routine 10/20/2024 1:30 PM EDT Full coverage crown needed for root canal-treated tooth Full coverage crown needed for tooth at risk for fracture 19 PREFABRICATED POST AND CORE IN ADDITION TO CROWN Routine 10/20/2024 1:30 PM EDT Full coverage crown needed for root canal-treated tooth Full coverage crown needed for tooth at risk for fracture INTRAORAL - PERIAPICAL FIRST RADIOGRAPHIC IMAGE Routine 10/20/2024 1:30 PM EDT Full coverage crown needed for root canal-treated tooth Full coverage crown needed for tooth at risk for fracture CASE PRESENTATION, DETAILED AND EXTENSIVE TREATMENT PLANNING Routine 10/20/2024 1:30 PM EDT Full coverage crown needed for root canal-treated tooth Full coverage crown needed for tooth at risk for fracture documented in this encounter Visit Diagnoses Diagnosis Full coverage crown needed for root canal-treated tooth- Primary Full coverage crown needed for tooth at risk for fracture documented in this encounter
--- OUTSIDE RECORDS SUMMARY | 2024-10-22 11:30 | XMS_ITS | Clinical Summary ---
Author Organization [employer] Address [address] [facility] [address] [place] [address] Care Team Providers Care Medical Social Consultant Name Role Phone Rupinder Kramer DO Primary Care Provider [phone] Allergies No known active allergies Medications carbamide peroxide (Debrox) 6.5 % otic solution Administer 5 drops into the left ear 2 times daily for 4 days. 15 mL 10/23/19 25 025 Active mupirocin (Bactroban) 2 % ointment Apply topically 3 times daily for 10 days. 22 g 10/23/19 25 025 Active cetirizine (ZyrTEC) 10 MG tablet Take 1 tablet (10 mg) by mouth Once per day. 30 tablet 10/23/19 026 Active fluticasone (Flonase) 50 MCG/ACT nasal spray Administer 2 sprays into each nostril Once per day. Shake gently. Before first use, prime pump. After use, clean tip and replace cap. 16 g 10/23/19 25 026 Active naproxen (Naprosyn) 500 MG tablet Take 1 tablet (500 mg) by mouth if needed in the morning and at bedtime for mild pain. 40 tablet 1 10/23/19 25 026 Active baclofen (Lioresal) 10 MG tablet Take 1 tablet (10 mg) by mouth if needed in the morning, at noon, and at bedtime for muscle spasms. 40 tablet 1 10/23/19 25 025 Active dextran 70-hypromellose (dextran-70 & hydroxypropyl methylcellulose) 0.1-0.3 % ophthalmic solution Administer 1 drop into both eyes if needed in the morning, at noon, and at bedtime for dry eyes. 30 mL 1 10/23/19 25 026 Active acetaminophen (Tylenol) 325 MG tablet Take by mouth. 025 Discontinued chlorhexidine (Peridex) 0.12 % solution Use 15 mL in the mouth or throat if needed in the morning, at noon, and at bedtime (PROPHYLAXIS) for up to 5 days. 110 mL 10/15/19 25 025 Active Problems Problem Noted Date Diagnosed Date BMI 29.0-29.9,adult 10/22/2024 Resolved Problems Problem Noted Date Diagnosed Date Resolved Date Known health problems: none 10/14/2024 10/22/2024 Encounters Date Type Department Care Team Description 10/22/2024 9:00 AM EDT Office Visit [facility] [address] [place] [address] Rupinder Kramer DO Routine history and physical examination of adult (Primary Dx); Chronic allergic rhinitis; Bilateral leg pain; Impacted cerumen of left ear; Decreased visual acuity; Dry eyes; Tinnitus of both ears; Folliculitis; BMI 29.0-29.9,adult; Encounter for immunization 10/20/2024 1:30 PM EDT Office Visit [facility] ADULT D[facility] [address] [place] [address] Linda Bangura, JOHN Full coverage crown needed for root canal-treated tooth (Primary Dx); Full coverage crown needed for tooth at risk for fracture 10/17/2024 Patient Outreach [facility] [address] [place] [address] Rupinder Kramer DO Pre-visit Planning (SDOH screening is negative) 10/14/2024 8:00 AM EDT Office Visit [facility] [address] [place] [address] [phone] Tato Monroy DMD Known health problems: none (Primary Dx) 09/15/2024 8:00 AM EDT Office Visit [facility] ADULT DENTAL [address] [place] [address] Jb Snell DDS Dental caries (Primary Dx) 08/27/2024 10:00 AM EDT Office Visit [facility] [address] [place] [phone] Ankit, Arin Dental caries (Primary Dx) 08/25/2024 8:00 AM EDT Office Visit [facility] [address] [place], [place] [phone] TayeNoreen desairicio 08/11/2024 11:30 AM EST Office Visit [facility] [address] [place], [place] [phone] Linda Bangura, DDS Symptomatic irreversible pulpitis (Primary Dx) 08/11/2024 Telephone [facility] [address] [place], [place] [phone] Brock Nieves MD Appointment Request from Last 3 Months Immunizations Name Administration Dates Next Due Tdap 10/22/2024 Family History Medical History Relation Name Comments No Known Problems Father Arthritis Maternal Grandmother Diabetes Maternal Grandmother Hypertension Maternal Grandmother No Known Problems Mother Heart murmur Sister Relation Name Status Comments Father Maternal Grandmother Mother Sister Social History Tobacco Use Types Packs/Day Years Used Date Smoking Tobacco: Never Passive Smoke Exposure: Never Smokeless Tobacco: Never Tobacco Cessation:Counseling Given: Not Answered Alcohol Use Standard Drinks/Week Comments Never 0 [...] Orientation Straight 08/11/2024 8: 53 AM EST Last Filed Vital Signs Vital Sign Reading [...] Mass Index 29.1 10/22/2024 8:58 AM EDT Plan of Treatment Upcoming Encounters Date Type Department Care Team (Late st Contact Info) Description 11/03/2024 3:00 PM EDT Office Visit [facility] ADULT [facility] [address] [place] [address] Linda Bangura DDS [address] [place] [address] 11/20/2024 9:30 AM EDT Office Visit [facility] [address] [place] [address] Linda Bangura, JONATHANS [address] [place] [phone] 03/02/2025 1:00 PM EDT Office Visit [facility] [address] [place] [phone] Arin Pham [address] [place] [phone] Health Maintenance Due Date Last Done Comments HIV Screening 1997 Family Planning (PISQ) 01/28/2012 Hepatitis C Screening 2015 Hepatitis B Vaccines (1 of 3 - 19+ 3-dose series) 01/28/2016 Pap Smear 2018 COVID-19 Vaccine ( - 2023-2 5 season) 2024 Influenza Vaccine (#1) 2024 Dental Oral Exam 02/28/2025 08/27/2024 Dental Prophylaxis 02/28/2025 08/27/2024 Dental X-Ray: Bitewings 08/28/2025 08/28/19 25, 08/11/2024 Alcohol/Substance Use Screening 10/22/2025 10/22/2024 Depression Screening 10/22/2025 10/22/2024, 10/22/2024 SDOH Screening 10/22/2025 10/22/2024 Tobacco Screening 10/22/2025 10/22/2024 Dental X-Ray: Full Mouth 08/29/2027 08/27/2024 DTaP/Tdap/Td Vaccines (2 - T d or Tdap) 10/22/2034 10/22/2024 Zoster Vaccines (1 of 2) 2047 RSV Patients and Patients Aged 60 years or older (1 - 1-dose 75+ series) 01/28/2072 HIB Vaccines Aged Out No longer eligi ble based on patient's age to complete this topic HPV Vaccines Aged Out No longer eligi ble based on patient's age to complete this topic Hepatitis A Vaccines Aged Out No long er eligible based on patient's age to complete this topic IPV Vaccines Aged Out No longer eligi ble based on patient's age to complete this topic Meningococcal Vaccine Aged Out No suzie vicente eligible based on patient's age to complete this topic Pneumococcal Vaccine: Pediatrics (0 to 5 Years) and At-Risk Patients (6 to 49) Years) Aged Out No longer eligible b ased on patient's age to complete this topic RSV under 20 months Aged Out No longe r eligible based on patient's age to complete this topic Rotavirus Vaccines Aged Out No longer eligible based on patient's age to complete this topic Procedures Procedure Name Priority Date/Time Associated Diagnosis [...] eyes Tinnitus of both ears BMI 29.0-29.9,adult CASE PRESENTATION, DETAILED AND EXTENSIVE TREATMENT PLANNING Routine 10/20/2024 1:30 PM EDT Full coverage crown needed for root canal-treated tooth Full coverage crown needed for tooth at risk for fracture INTRAORAL - PERIAPICAL FIRST RADIOGRAPHIC IMAGE Routine 10/20/2024 1:30 PM EDT Full coverage crown needed for root canal-treated tooth Full coverage crown needed for tooth at risk for fracture CROWN PREP Routine 10/20/2024 1:30 PM EDT Full coverage crown needed for root canal-treated tooth Full coverage crown needed for tooth at risk for fracture 19 PREFABRICATED POST AND CORE IN ADDITION TO CROWN Routine 10/20/2024 1:30 PM EDT Full coverage crown needed for root canal-treated tooth Full coverage crown needed for tooth at risk for fracture 4 O RESIN-BASED COMPOSITE - 1 SURF, POSTERIOR Routine 10/14/2024 8:00 AM EDT 2 O RESIN-BASED COMPOSITE - 1 SURF, POSTERIOR Routine 10/14/2024 8:00 AM EDT CASE PRESENTATION, DETAILED AND EXTENSIVE TREATMENT PLANNING Routine 10/14/2024 8:00 AM EDT CASE PRESENTATION, DETAILED AND EXTENSIVE TREATMENT PLANNING Routine 09/15/2024 8:00 AM EDT 19 ENDODONTIC THERAPY, MOLAR TOOTH Routine 09/15/2024 8:00 AM EDT CASE PRESENTATION, DETAILED AND EXTENSIVE TREATMENT PLANNING Routine 08/27/2024 10:00 AM EDT PROPHYLAXIS - ADULT Routine 08/27/2024 1 0:00 AM EDT INTRAORAL - COMPLETE SERIES OF RADIOGRAPHIC IMAGES Routine 08/27/2024 10:00 AM EDT COMPREHENSIVE ORAL EVALUATION - NEW OR ESTABLISHED PATIENT Routine 08/27/2024 10:00 AM EDT 5 EXTRACTION Routine 08/27/2024 12:00 AM EDT 1 EXTRACTION Routine 08/27/2024 12:00 AM EDT 32 EXTRACTION Routine 08/27/2024 12:00 AM EDT 17 EXTRACTION Routine 08/27/2024 12:00 AM EDT 16 EXTRACTION Routine 08/27/2024 12:00 AM EDT CASE PRESENTATION, DETAILED AND EXTENSIVE TREATMENT PLANNING Routine 08/25/2024 8:00 AM EDT 19 ENDO - CLEAN AND SHAPE Routine 08/25/2024 8:00 AM EDT CASE PRESENTATION, DETAILED AND EXTENSIVE TREATMENT PLANNING Routine 08/11/2024 11:30 AM EST Symptomatic irreversible pulpitis BITEWING - SINGLE RADIOGRAPHIC IMAGE Routine 08/11/2024 11:30 AM EST Symptomatic irreversible pulpitis INTRAORAL - PERIAPICAL FIRST RADIOGRAPHIC IMAGE Routine 08/11/2024 11:30 AM EST Symptomatic irreversible pulpitis PALLIATIVE (EMERGENCY) TREATMENT OF DENTAL PAIN - MINOR PROCEDURE Routine 08/11/2024 11:30 AM EST Symptomatic irreversible pulpitis from Last 3 Months Results * CBC auto differential (10/22/2024 10:19 AM EDT) White Blood Count 5.9 4.8 - 10.8 X10*3/uL [facility] Red Blood Count 4.58 4.20 - 5.50 X10*6/uL [facility] Hemoglobin 13.5 12.0 - 16.0 g/dl [facility] Hematocrit 40.6 37.0 - 47.0 % [facility] Mean Corpuscular Volume 88.6 80.0 - 98.0 fL [facility] Mean Corpuscular Hemoglobin 29.5 27.0 - 33.0 pg [facility] Mean Corpuscular HGB Conc 33.3 31.0 - 35.0 g/dl [facility] Red Cell Distribution Width 12.3 11.0 - 16.0 % [facility] Platelet Count 249 160 - 400 X10*3/uL [facility] Mean Platelet Volume 11.8 9.4 - 12.3 fL [facility] Neutrophils Percent Auto 54.0 45 - 73 % [facility] Imm Gran Pct Auto 0.0 0.0 - 0.4 % [facility] Lymphocytes Percent Auto 36.9 20 - 40 % [facility] Monocytes Percent Auto 5.7 2 - 11 % [facility] Eosinophils Percent Auto 2.2 0 - 4 % [facility] Basophils Percent Auto 1.2 0 - 2 % [facility] NRBC Pct Auto 0.0 0.0 - 0.2 /100WBC [facility] Neutrophils Absolute Auto 3.2 2.0 - 8.3 x10*3/uL [facility] Imm Gran Abs Auto 0.00 0.00 - 0.03 X10*3/uL [facility] Lymphocytes Absolute Auto 2.2 1.2 - 4.9 X10*3/uL [facility] Monocytes Absolute Auto 0.3 0.1 - 1.2 X10*3/uL [facility] Eosinophils Absolute Auto 0.1 0.0 - 0.4 X10*3/uL [facility] Basophils Absolute Auto 0.1 0.0 - 0.2 X10*3/uL [facility] NRBC Abs Auto 0.000 0.0 - 0.012 X10*3/uL [facility] Blood Venous blood specimen / Unknown 10/22/2024 10:19 AM EDT 10/22/2024 10:55 AM EDT us Rupinder Kramer DO LAB BLOOD ORDERABLES Final R esult [facility] [address] [place] [phone] * Hemoglobin A1c (10/22/2024 10:19 AM EDT) Hemoglobin A1c 5.3 <6.0 % [facility] Comment:Hemoglobin A1C Refer ence Range Adults: 4.8 - 6.0 % Non diabetic: < 6.0 % Goal: < 7.0 %Additional Action Suggested: > 8.0 %Note: Hemoglobin A1c results are invalid for patients with abnormal amounts of HbF. Blood transfusions may impact the HbA1c concentration in the patient sample. Estimated Average Glucose 105 mg/dL [facility] Comment:eAG = Estimated ave rage glucose which is %A1C expressed asaverage glucose, using the formula of the [id number] Glucose study (ADAG), Diabetes Care, Vol.31,#8,Jan. 2007 Blood Venous blood specimen / Unknown 10/22/2024 10:19 AM EDT 10/22/2024 10:55 AM EDT us Rupinder Kramer DO LAB BLOOD ORDERABLES Final R esult [facility] [address] [place] [address] [phone] from Last 3 Months [facility] ADULT DENTAL - HSN FULL (MEDICAID) Care Teams Medical Social Consultant Relationship Specialty Start Date End Date Rupinder Kramer DO [address] [place] [address] PCP - General Family Medicine 10/22/24
[2024-10-22 12:00] LABS: Erythrocyte Sedimentation Rate 8 MM/HR (0-20)
[2024-10-22 12:05] LABS: Rheumatoid Factor < 13.0 IU/mL (<15.0)
[2024-10-22 12:07] LABS: Alanine Aminotransferase 19 U/L (0-31); Albumin Level 4.5 g/dL (3.5-5.0); Alkaline Phosphatase 62 U/L (39-117); Anion Gap 9 (12-20); Aspartate Amino Transferase 21 U/L (5-31); Bilirubin Direct 0.2 mg/dL (0.0-0.5); Bilirubin Total 0.5 mg/dL (0.0-1.0); Blood Urea Nitrogen 12 mg/dL (9-16); C Reactive Protein 0.11 mg/dL (< or = 0.50); Calcium 9.6 mg/dL (8.4-10.2); Carbon Dioxide 27 mmol/L (22-29); Chloride 108 mmol/L (96-108); Cholesterol 146 mg/dL (<200); Estimated Glomerular Filt Rate > 60; Glucose Random 83 mg/dL (60-115); HDL Cholesterol 48 mg/dL (>40); Iron 76 mcg/dL (30-160); LDL Cholesterol Calculated 86 mg/dL (<100); Percent Iron Saturation 32 % (15-50); Potassium 4.1 mmol/L (3.3-5.1); Sodium 140 mmol/L (135-145); Total Iron Binding Capacity 235 mcg/dL (228-428); Total Protein 7.3 g/dL (6.5-8.0); Triglycerides 61 mg/dL (<150); Unsaturated Iron Binding 159 ug/dL
[2024-10-22 12:14] LABS: HBS Num1 915.45 mIU/mL (0-7.99); HBsAGNum1 0.27 S/CO (0.00-0.99); HIV AB/AG Nonreactive (Nonreactive); HIV Num 1 0.06 S/CO (0.00-0.99); Hepatitis B Core Antibody Nonreactive (Nonreactive); Hepatitis B Surface Antigen Negative (Negative); ~HepC Num1 0.09 S/CO (0.00-0.79); ~Hepatitis B Surface Antibody REACTIVE (Nonreactive); ~Hepatitis C Antibody Nonreactive (Nonreactive)
[2024-10-22 12:25] LABS: Folate 11.6 ng/mL (> or = 4.0); Vitamin B12 436 pg/mL (200-900)
[2024-10-22 12:30] LABS: Ferritin 92 ng/mL (10-122); Thyroid Stimulating Hormone 1.42 uIU/mL (0.32-4.0); Vitamin D 25-OH Total 20.9 ng/mL (>30)
[2024-10-22 13:54] LABS: CT PCR NOT DETECTED (Not Detect.); NG PCR NOT DETECTED (Not Detect.)
[2024-10-23 04:00] LABS: Hepatitis A Antibody IgG REACTIVE (Nonreactive); ~Hepatitis A Antibody IgG 9.55 S/CO (0.00-0.99)
[2024-10-23 10:09] LABS: RPR Rapid Plasma Reagin NON-REACTIVE (NON-REACTIVE)
[2024-10-23 11:08] LABS: Lyme Abs Screen <0.90 index
[2024-10-23 11:44] LABS: Anti Nuclear Antibody Screen NEGATIVE (NEGATIVE)
[2024-10-23 14:53] LABS: Rubella IgG Antibody 1.28 Index; Rubeola IgG (Measles) <13.50 AU/mL; Varicella IgG Antibody 3.66 S/CO
[2024-10-25 09:54] LABS: TS Negative Control Passed; TS Panel A 0; TS Panel B 0; TS Positive Control Passed; TSpotTB Negative (Negative)
== END 2024-10-22 10:14 | disposition home or self-care (01) ==
LOC: HO.HHCL 10:13
PROVIDERS: Visit Provider Family Medicine
DX: Z00.00 Encounter for general adult medical examination without abnormal findings (principal); J30.9 Allergic rhinitis, unspecified; M79.604 Pain in right leg; M79.605 Pain in left leg; H61.22 Impacted cerumen, left ear; H54.7 Unspecified visual loss; H04.123 Dry eye syndrome of bilateral lacrimal glands; H93.13 Tinnitus, bilateral
CPT/HCPCS: 80048; 80061; 80076; 82306; 82607; 82728; 82746; 83036; 83540; 84439; 84443; 85025; 85652; 86038; 86140; 86431; 86481; 86592; 86617; 86618; 86704; 86706; 86708; 86735; 86762; 86765; 86787; 86803; 87340; 87389; 87491; 87591

== ENCOUNTER → 2024-11-23 15:30 | Outpatient (BNV) | payer SELFPAY | PROVIDERS: PCP Family Medicine; Visit Provider Radiology Diagnostic Radiology | DX: J34.89 Other specified disorders of nose and nasal sinuses (principal) | CPT/HCPCS: 70551 ==

== ENCOUNTER 2024-11-23 15:31 | Outpatient (REF) | payer MEDICAID, OTHER, SELFPAY ==
--- NOTE | ~2024-11-23 | MR_ITS ---
EXAMINATION: MR BRAIN/IAC WITHOUT CONTRAST CLINICAL INFORMATION: Ringing in the ears bilaterally. Tinnitus x1 year. Please note patient refused contrast for this examination. COMPARISON: None available. TECHNIQUE: MRI of the brain and IACs was obtained using routine sequences without contrast. Examination performed on a high-field 1.5 Radha Siemens unit utilizing axial and sagittal T1, axial diffusion, axial T1 FLAIR, axial SWI, and axial and coronal thin section T2 SPACE sequences. No gadolinium was administered. FINDINGS: IACs: There is normal CSF signal within the bilateral IACs, CP angle cisterns, prepontine cisterns, and labyrinthine structures. The 7th and 8th nerves are normal in course and caliber throughout bilaterally. There are no masses. Normal CSF signal and Meckel's caves bilaterally. The 5th nerves are normal in course and caliber. The 3rd nerves, 4th nerves, 6 nerves, and 9th cranial nerves areas are normally in course and caliber on the thin section T2 imaging. No signal abnormality is present within the mastoids or tympanic spaces. IMAGED BRAIN: There is no diffusion restriction identified. There is no intracranial hemorrhage or extra-axial fluid collection. There is no mass effect or edema. There is no midline shift. There is no ventriculomegaly. No abnormal hemosiderin deposition is identified. There are no significant white matter abnormalities on the FLAIR sequence. Midline structures appear normally formed. The pituitary gland appears normal. Posterior fossa structures appear normal. Cerebellar tonsils are appropriately located. Major flow voids are preserved within the skull base. The globes and orbital contents demonstrate no abnormalities. Moderate mucosal thickening seen left greater than right maxillary sinuses, with small air-fluid levels left greater than right. Similar features seen in the sphenoid sinuses. More significant to extensive mucosal thickening and fluid seen throughout the ethmoid sinuses. Extracranial soft tissues demonstrate no abnormalities. No suspicious bone marrow changes are evident. Atlantoaxial joint is normal. MR/MR head/brain wo con IMPRESSION: 1. No evidence of intracranial hemorrhage, acute infarction, mass effect, or edema. 2. There is normal CSF signal within the IACs, CP angle cisterns, pontine cisterns, and labyrinthine structures. The 7th and 8th nerves have normal course and caliber. There is no signal abnormality of the mastoids or tympanic spaces. 3. There is extensive bilateral maxillary, ethmoid, and sphenoid sinus disease, with several air-fluid levels. Findings could represent acute sinusitis in the appropriate clinical setting. Electronically signed by: Camron Casiano MD 11/24/2024 12:06 PM EDT RP
== END 2024-11-23 15:32 | disposition home or self-care (01) ==
LOC: HO.MRI 15:31
PROVIDERS: PCP Family Medicine; Visit Provider Family Medicine
DX: H93.13 Tinnitus, bilateral (principal)
CPT/HCPCS: 70551